=== PATIENT | female | born 1940 | race African-American/Black ===

== ENCOUNTER 2018-07-08 13:52 | Outpatient (CLI) | payer MEDICARE ==
--- NOTE | 2018-07-08 15:10 | BD ---
BONE DENSITOMETRY USING DEXA: Date: 07/08/18 HISTORY: Postmenopausal screening for osteoporosis. Asymptomatic menopausal state. FINDINGS: Lumbar Spine: BMD (g/cm2) L1 1.124 T-Score: 1.2 Z-Score: 3.6 L2 1.261 T-Score: 2.1 Z-Score: 4.7 L3 1.444 T-Score: 3.3 Z-Score: 6.0 L4 1.439 T-Score: 3.4 Z-Score: 6.3 L1-L4 1.340 T-Score: 2.7 Z-Score: 5.3 Femoral Neck: 0.831 T-Score: -0.2 Z-Score: 2.1 Total Femur: 1.091 T-Score: 1.2 Z-Score: 3.3 IMPRESSION: Normal bone mineral density. No evidence of osteopenia/osteoporosis. POS: TPC
== END 2018-07-08 13:53 | disposition home or self-care (01) ==
LOC: BICMAMMO 13:52
PROVIDERS: ATTEND Student in an Organized Health Care Education/Training Program
DX: Z78.0 Asymptomatic menopausal state (principal)
CPT/HCPCS: 77080

== ENCOUNTER 2018-08-10 08:45 | Inpatient (IN) | payer MEDICARE ==
[2018-09-21] MEDS ORDERED: ceFAZolin Sodium (SDC) 2 GM/100 ML BAG ONE (06:01)
[2018-09-21] MEDS ORDERED: Tranexamic Acid 1,000 MG/10 ML VIAL ONE ×2 (06:02→09:30)
[2018-09-21] MEDS ORDERED: Sodium Chloride 0.9% 100 ML ONE (06:02)
[2018-09-21] MEDS ORDERED: Vancomycin HCl 1.5 GM in Sodium Chloride 0.9% 250 ML 300 ML IVPB SCH ×2 (06:15→18:30)
[2018-09-21] MEDS ORDERED: Midazolam HCl 2 mg/2 ml Vial ONE (06:30)
[2018-09-21] MEDS ORDERED: Fentanyl 100 MCG/2 ML VIAL ONE (06:30)
[2018-09-21] MEDS ORDERED: Promethazine HCl 25 MG/ML VIAL IM PRN ×3 (07:15→10:46)
[2018-09-21] MEDS ORDERED: Ropivacaine HCl/PF 250 ML in Premix Bag 1 BAG NERVE BLCK SCH (07:15)
[2018-09-21] MEDS ORDERED: Zolpidem Tartrate 5 MG TAB PO PRN ×2 (07:15→10:46)
[2018-09-21] MEDS ORDERED: Ondansetron PF 4 MG/2 ML Vial IVP PRN ×2 (07:15→10:46)
[2018-09-21] MEDS ORDERED: traMADol HCl 50 MG TAB PO PRN ×3 (07:15→10:46)
[2018-09-21] MEDS ORDERED: Fentanyl 100 MCG/2 ML VIAL IV PRN (07:17)
[2018-09-21] MEDS ORDERED: Bupivacaine/Epinephrine 0.25% 30 ML VIAL ONE (07:51)
[2018-09-21] MEDS ORDERED: Promethazine HCl 25 MG/ML VIAL SLOW IVP PRN (08:11)
[2018-09-21] MEDS ORDERED: Ondansetron HCl/PF 4 MG/2 ML Vial IVP PRN (08:11)
--- NOTE | 2018-09-21 08:39 | HP ---
HISTORY OF PRESENT ILLNESS: Ms. Linder is a pleasant 78-year-old female who presents with left knee pain. Pain began in 2011, has progressed 8/10 severe pain. She has taken ibuprofen, previous steroid injections as well as Synvisc series and has failed conservative measures and desired to proceed with a total knee arthroplasty. PAST MEDICAL HISTORY: Hypertension, hypercholesterolemia, arthritis. PAST SURGICAL HISTORY: Hysterectomy, tibia fracture. MEDICATIONS: 1. Gabapentin. 2. Lisinopril. 3. Simvastatin. 4. Aspirin. ALLERGIES: NO KNOWN DRUG ALLERGIES. SOCIAL HISTORY: Nonsmoker, nondrinker. No drug use. The patient is . PHYSICAL EXAMINATION: GENERAL: Alert and oriented female, in no acute distress, resting comfortably in bed. EXTREMITIES: NVID, ligaments intact. She has subtle varus. The patient has 2+ DP and PT pulses. DIAGNOSTIC DATA: The patient's radiographs show varus angulation of her knee, medial joint space narrowing, osteophyte formation consistent with left knee osteoarthritis. MEDICAL PROBLEMS: Include high blood pressure, high cholesterol, arthritis, and chronic pain. ASSESSMENT AND PLAN: The patient will be admitted for a left total knee arthroplasty. I discussed with the patient risks and benefits of the surgery, pain, scar, bleeding, infection, damage to vital structure, need for further surgeries , fracture below the stem, loss of life and limb. The patient did take a baby aspirin this week, so using a tourniquet as well as TXA, I do not think that she will lose enough blood to require transfusion, but I discussed with her she has increased risk of blood loss requiring transfusion. The patient is given vancomycin and Ancef. We will repeat UA during the OR. She has no symptoms of urinary tract infection. The patient's medical problems will be managed by Lilibeth while in-house. Job ID: [id number] MTDD
[2018-09-21] MEDS ORDERED: Tranexamic Acid 1,000 MG in Sodium Chloride 0.9% 100 ML IVPB SCH (09:30)
[2018-09-21] MEDS ORDERED: Promethazine HCl 25 MG/ML VIAL ONE (09:57)
--- NOTE | 2018-09-21 09:58 | RAD ---
XR Knee Lt 2 View History: Postoperative total knee Comparison: The radiograph August 02, 2018 Findings: Satisfactory appearance left total knee arthroplasty and patellar resurfacing. Impression: Satisfactory postoperative appearance.
[2018-09-21] MEDS ORDERED: Acetaminophen 325 MG TAB PO PRN (10:46)
[2018-09-21] MEDS ORDERED: diphenhydrAMINE 25 MG CAP PO PRN (10:46)
[2018-09-21] MEDS ORDERED: Fentanyl 100 MCG/2 ML VIAL SLOW IVP PRN ×2 (10:46)
[2018-09-21] MEDS ORDERED: HYDROcodone/Acetaminophen 10/325 mg Tablet PO PRN ×2 (10:46)
[2018-09-21] MEDS ORDERED: Gabapentin 300 MG CAP PO PRN ×2 (11:32→15:02)
[2018-09-21 12:01] VITALS: BMI 40.3
--- NOTE | 2018-09-21 12:28 | PDOC.FPRHP ---
- History of Present Illness Chief Complaint: Medical Management Consult History of Present Illness: 78 year old F that had L total knee arthroplasty today. We have been consulted for medical management. Patient has recently returned to floor from post-op and is sleepy. is at bedside. Patient reports feeling cold. Denies any pain. - Allergies/Adverse Reactions Allergies Allergy/AdvReac Type Severity Reaction Status Date / Time shellfish derived Allergy itching Verified 09/09/18 09:08 - Home Medications Medication Instructions Recorded Confirmed Type Amlodipine [Norvasc] 10 mg PO HS 11/13/12 09/09/18 History Aspirin [Aspirin EC] 81 mg PO DAILY 11/14/12 09/09/18 History Ubidecarenone [Co Q-10] 200 mg PO DAILY 09/13/15 09/09/18 History Gabapentin 1 tab PO TID PRN 09/09/18 09/09/18 History Latanoprost [Xalatan 0.005% Ophth 1 drop TOP HS 09/09/18 09/09/18 History Soln] Lisinopril 5 mg PO QAM 09/09/18 09/09/18 History traMADol HCl [Tramadol HCl] 1 - 2 tab PO ASDIR PRN 09/09/18 09/09/18 History - History PMHx: HTN, HLD, OA, neuropathy, DM diet controlled PSHx: Hysterectomy 1979, L tib/fib repair 1995 FHx: CVA, HTN-father, adult leukemia Social: lives with - Review of Systems General: reports: fever/chills (reports chills), fatigue ENT: denies: nasal congestion Respiratory: denies: cough, shortness of breath Cardiovascular: denies: chest pain, palpitation Gastrointestinal: denies: nausea, vomiting, abdominal pain Genitourinary: denies: dysuria Skin: denies: rashes, itching Musculoskeletal: denies: pain, tenderness Neurological: denies: numbness, weakness - Vital signs BP: 128/84 HR: 75 RR: 16 Tmax: 97.5 Pox: 96% on RA Wt: 106 kg - Physical Exam Constitutional: NAD (tired, resting in bed) HEENT: normocephalic and atraumatic, grossly normal vision, grossly normal hearing, MMM Heart: RRR, normal S1/S2, no murmurs/rubs/gallops Lungs: CTAB, no respiratory distress Abdomen: soft, non-tender, bowel sounds present -Musculoskeletal: LLE bandage clean, dry intact. SCDs in place Neurological: no focal deficit Skin: good turgor, capillary refill <2 seconds Heme/Lymphatic: no unusual bruising or bleeding Psychiatric: intact recent and remote memory FMR H&P: A/P - Problem List (1) S/P left knee surgery Current Visit: Yes Status: Acute Code(s): Z98.890 - OTHER SPECIFIED POSTPROCEDURAL STATES (2) Arthritis Current Visit: Yes Status: Chronic Code(s): M19.90 - UNSPECIFIED OSTEOARTHRITIS, UNSPECIFIED SITE (3) HLD (hyperlipidemia) Current Visit: Yes Status: Chronic Code(s): E78.5 - HYPERLIPIDEMIA, UNSPECIFIED Qualifiers: Hyperlipidemia type: unspecified Qualified Code(s): E78.5 - Hyperlipidemia , unspecified (4) HTN (hypertension) Current Visit: Yes Status: Chronic Code(s): I10 - ESSENTIAL (PRIMARY) HYPERTENSION Qualifiers: Hypertension type: essential hypertension Qualified Code(s): I10 - Essential (primary) hypertension - Plan 78 yo F admitted for L total knee arthroplasty performed today. L total knee arthroplasty - surgery team managing pain HTN - BP stable - Continue home lisinopril and amlodipine Neuropathy - Continue home gabapentin HLD - on Coq10 at home, will continue at discharge DM diet controlled CKD2 Addendum - Attending - Attending Attestation Date/Time: 09/21/18 [id number] I personally evaluated the patient and discussed the management with Dr. Faulkner I agree with the History, Examination, Assessment and Plan documented above with any addition or exceptions noted below - 78 year old F with h/o HTN, HLD who underwent L total knee arthroplasty today. We have been consulted for medical management. Denies any pain, N.V currently. Does report feeling of tongue numbness which was evaluated in PACU and felt to may be related to anesthesia. PMH/PSH/Meds/ALl reviewed and agree with resident's documentation. Afebrile P75, BP 128/74, 96% RA Exam repeated by me and agree with resident's findings. A/P: 1) POD#0 s/p L TKR- continue care as per ortho, 2) HTN- well controlled; continue home meds.
[2018-09-21] MEDS: Ketorolac Tromethamine 30 MG/ML VIAL IVP SCH ×3 (12:32→23:07)
[2018-09-21 14:15] LABS: Bilirubin Negative (Negative); Blood, Urine 2+ (Negative); Clarity Clear (Clear); Glucose, Urine (Dipstick) Normal (Negative); Leukocyte Negative Leu/uL (Negative); Nitrite Negative (Negative); Protein, Urine (Dipstick) 10 mg/dL (Neg-Trace); RBC/HPF Greater than 50 HPF (0-3); Squamous Epithelial 0-3 HPF (0-3); Urobilinogen Normal mg/dL (Less than 2)
[2018-09-21 14:32] LABS: Calcium Oxalate Crystals 1+ HPF (None Seen)
[2018-09-21] MEDS ORDERED: Ropivacaine 0.2% HCl/PF (40 MG/20 ML VIAL) ONE (15:15)
[2018-09-21] MEDS ORDERED: Ropivacaine 0.5% HCl/PF (150 MG/30 ML VIAL) ONE (15:15)
[2018-09-21 15:38] LABS: Bacteria/HPF None Seen HPF (None Seen)
--- NOTE | 2018-09-21 15:44 | OP ---
DATE OF PROCEDURE: 09/21/2018 PREOPERATIVE DIAGNOSIS: Left knee osteoarthritis. POSTOPERATIVE DIAGNOSIS: Left knee osteoarthritis. PROCEDURE PERFORMED: Left total knee arthroplasty. SHEEP BONER: Shree Barry PA-C. ANESTHESIA: Steve Nichole CRNA. The patient received a LMA with an adductor canal single shot sciatic. ESTIMATED BLOOD LOSS: 100 mL. TOURNIQUET TIME: 77 minutes at 300 mmHg. ANTIBIOTICS: Ancef 2 g, vancomycin 1.5 g. The patient had TXA 1 g. The patient has had a [place] Triathlon size 3 femur, size 3 tibia, 11 CS poly and A29 patella. COMPLICATIONS: None. HISTORY OF PRESENT ILLNESS: Ms. Linder is an 78-year-old female who presented with knee pain that had failed conservative measures. I discussed with the patient risks and benefits of left total knee arthroplasty to include pain, scar, bleeding, infection, damage to vital structures, decreased range of motion, strength, nonunion, malunion, fracture above the stem, need for further surgeries, loss of life or limb and blood clots. The patient understood the risks and benefits and elected to proceed. DESCRIPTION OF PROCEDURE: Time-out was performed designating the patient's left lower extremity as the operative site based on site, consents, and marking. After time-out, the patient's left lower extremity was prepped and draped in sterile fashion. Tourniquet was brought up for a total of 77 minutes. Anterior midline incision, medial patellar arthrotomy excised the fat pad. Medial soft tissue release, everted the patella, mapped out the distal femur, cut in 4 degrees slope, 0 degrees varus valgus. 11 and 7, she had a hypoplastic lateral femoral condyle, though in physiologic varus. We placed the patient in 3 degrees external rotation guide, mapped out the size 3 cut, placed our box cut, anterior and posterior chamfer cuts, removed osteophytes and bone. Placed our pickle fork in position, released our ACL and released our PCL, cut the tibial tubercle, mapped out the tibia, cut and 1 and 7 with 4 degrees of posterior slope, removed the bone osteophytes. We placed a laminar house carpenter, decompressed the PCL, not much osteophytes posteriorly. We then removed the remnant of the bone. We came back, placed our tibia, felt that I did not like the positions, so we floated the tibia, placed 11 poly in the femur and placed it in flexion and extension. We had overall good alignment in full extension and good flexion and extension gap as well as no significant posterior translation. We then pinned the tibia. We placed it about in full extension, everted the patella, cut it from 25 down to about 12, placed A29 patella, it tracked well. We then removed the clamp and we drilled lugs for our femur, cut our keel for tibia. We cemented our tibia, placed our poly, cemented our femur, removed excess cement, cemented our patella, closed our arthrotomy, injected lidocaine. There was some that seeped out through the hole and a little small rent in the patellar tendon, closed with 2, 0 StrataFix, 2-0 StrataFix and glue. The patient will be admitted per [place] protocol. We will follow up inhouse. Job ID: [id number] LAZ
[2018-09-21] MEDS: CEFAZOLIN 2 GM, Admixture Fee 1 EACH in Sodium Chloride 0.9% 100 ML IVPB SCH ×2 (15:57→23:09)
[2018-09-21] MEDS ORDERED: Lidocaine 1% PF 5 ML VIAL ONE (16:06)
[2018-09-21] MEDS ORDERED: Ondansetron PF 4 MG/2 ML Vial ONE (16:06)
[2018-09-21] MEDS ORDERED: ePHEDrine 50 MG/ML VIAL ONE (16:06)
[2018-09-21] MEDS ORDERED: PROPOFOL 200 MG/20 ML VIAL ONE (16:06)
[2018-09-21] MEDS: Sodium Chloride 0.9% 1,000 ML IV SCH ×2 (18:41→23:05)
[2018-09-21] MEDS ORDERED: Gabapentin 300 MG CAP PO SCH (19:45)
[2018-09-21] MEDS: Aspirin 81 mg Enteric Coated Tablet PO SCH (19:54)
[2018-09-21] MEDS: Amlodipine 10 MG TAB PO SCH (19:54)
[2018-09-21] MEDS: Latanoprost 0.005% Ophth Soln 2.5 ml Bottle EA EYE SCH (20:00)
[2018-09-21] MEDS ORDERED: Latanoprost 0.005% Ophth Soln 2.5 ml Bottle EA EYE SCH (21:00)
[2018-09-21] MEDS ORDERED: Amlodipine 10 MG TAB PO SCH (21:00)
[2018-09-22] MEDS: HYDROcodone/Acetaminophen 10/325 mg Tablet PO PRN ×5 (04:07→22:05)
[2018-09-22 05:27] LABS: Mean Corpuscular Hemoglobin 29.7 pg (27.0-31.0); Mean Corpuscular Volume 93.1 fL (78.0-98.0); Mean Platelet Volume 11.4 fL (7.4-10.4); Platelet Count 147 thou/uL (130-400); RBC Distribution Width 13.6 % (11.5-14.5); White Blood Cell (WBC) Count 7.4 thou/uL (4.8-10.8)
[2018-09-22] MEDS: Ketorolac Tromethamine 30 MG/ML VIAL IVP SCH ×4 (05:28→23:10)
--- NOTE | 2018-09-22 06:25 | PDOC.FM ---
- Subjective Subjective: Patient sitting up in chair. Reports she feels some pain might be coming on. Tolerating PO well. Passing gas. Takes gabapentin only at night so dosing was adjusted - Objective Vital Signs & Weight: Vital Signs (12 hours) Temp Pulse Resp BP BP Pulse Ox 09/22/18 03:36 98.6 F 93 16 114/68 92 L 09/22/18 00:00 101.0 F H 95 16 121/68 93 L 09/21/18 20:00 98.4 F 90 16 125/53 L 94 L 09/21/18 19:54 75 125/53 L Weight Weight 106.594 kg I&O: 09/20/18 09/21/18 09/22/18 06:59 06:59 06:59 Intake Total 2610 Output Total 995 Balance 1615 Result Diagrams: 09/22/18 04:45 Phys Exam - Physical Examination Constitutional: NAD Respiratory: clear to auscultation bilateral Cardiovascular: RRR, no significant murmur Gastrointestinal: soft, non-tender, positive bowel sounds Musculoskeletal: no edema L leg bandaged Neurological: non-focal Psychiatric: normal affect Skin: normal turgor, cap refill <2 seconds Dx/Plan (1) S/P left knee surgery Code(s): Z98.890 - OTHER SPECIFIED POSTPROCEDURAL STATES Status: Acute (2) Arthritis Code(s): M19.90 - UNSPECIFIED OSTEOARTHRITIS, UNSPECIFIED SITE Status: Chronic (3) HLD (hyperlipidemia) Code(s): E78.5 - HYPERLIPIDEMIA, UNSPECIFIED Status: Chronic Qualifiers: Hyperlipidemia type: unspecified Qualified Code(s): E78.5 - Hyperlipidemia , unspecified (4) HTN (hypertension) Code(s): I10 - ESSENTIAL (PRIMARY) HYPERTENSION Status: Chronic Qualifiers: Hypertension type: essential hypertension Qualified Code(s): I10 - Essential (primary) hypertension - Plan Plan: 78 yo F admitted for L total knee arthroplasty performed 09/21. POD #1 s/p L total knee arthroplasty - surgery team managing pain HTN - slightly hypotensive, hold am lisinopril - On home lisinopril and amlodipine Neuropathy - Continue home gabapentin HLD - on Coq10 at home DM diet controlled CKD2 Dispo: Will continue to monitor BP otherwise no further recommendations Addendum - Attending - Attending Attestation Date/Time: 09/22/18 [id number] I personally evaluated the patient and discussed the management with Dr. Faulkner. I agree with the History, Examination, Assessment and Plan documented above with any addition or exceptions noted below. Patient doing well s/p TKR with Ortho. We are holding her BP meds currently and if continues to run low may decrease some dosages. Otherwise, continue home meds. Dispo per primary team.
[2018-09-22] MEDS: Sodium Chloride 0.9% 1,000 ML IV SCH ×2 (07:08→17:03)
[2018-09-22] MEDS: Senokot S 8.6-50 MG TAB PO SCH ×2 (08:26→19:43)
[2018-09-22] MEDS: Multivitamin W/ Minerals 1 TAB PO SCH (08:26)
[2018-09-22] MEDS: Ubidecarenone 50 MG CAP PO SCH (08:27)
[2018-09-22] MEDS: Ferrous Gluconate 324 MG TAB PO SCH ×2 (08:27→19:43)
[2018-09-22] MEDS: Aspirin 81 mg Enteric Coated Tablet PO SCH ×2 (08:27→19:43)
[2018-09-22] MEDS: Lisinopril 5 MG TAB PO SCH (08:33)
[2018-09-22] MEDS ORDERED: Lisinopril 5 MG TAB PO SCH (09:00)
[2018-09-22] MEDS: Amlodipine 10 MG TAB PO SCH (19:43)
[2018-09-22] MEDS: Latanoprost 0.005% Ophth Soln 2.5 ml Bottle EA EYE SCH (19:48)
[2018-09-22] MEDS ORDERED: Gabapentin 300 MG CAP PO SCH (21:00)
[2018-09-23] MEDS: Sodium Chloride 0.9% 1,000 ML IV SCH (03:56)
[2018-09-23] MEDS: Ketorolac Tromethamine 30 MG/ML VIAL IVP SCH (05:11)
[2018-09-23] MEDS: HYDROcodone/Acetaminophen 10/325 mg Tablet PO PRN ×2 (05:24→09:58)
[2018-09-23 06:03] LABS: Hemoglobin 11.6 g/dL (12.0-16.0); Mean Corpuscular HGB CONC 31.4 g/dL (32.0-36.0); Mean Corpuscular Hemoglobin 29.2 pg (27.0-31.0); Mean Corpuscular Volume 92.9 fL (78.0-98.0); Mean Platelet Volume 10.8 fL (7.4-10.4); Platelet Count 144 thou/uL (130-400); RBC Distribution Width 13.7 % (11.5-14.5); Red Blood Cell (RBC) Count 3.99 mill/uL (4.20-5.40)
--- NOTE | 2018-09-23 06:12 | PDOC.FM ---
- Subjective Subjective: Patient reports feeling well this morning. She did have increased pain yesterday when sitting up in hard chair during therapy. She is tolerating PO intake well. She says she may be going home this afternoon. - Objective MAR Reviewed: Yes Vital Signs & Weight: Vital Signs (12 hours) Temp Pulse Resp BP BP Pulse Ox 09/23/18 04:26 98.5 F 70 16 118/68 92 L 09/23/18 00:27 97.8 F 63 18 107/66 92 L 09/22/18 20:00 98.5 F 67 16 131/74 95 09/22/18 19:43 75 119/73 Weight Admit Weight 106.594 kg Weight 106.594 kg I&O: 09/21/18 09/22/18 09/23/18 06:59 06:59 06:59 Intake Total 2610 1999 Output Total 995 Balance 1615 1999 Result Diagrams: 09/23/18 05:39 Phys Exam - Physical Examination Constitutional: NAD HEENT: moist MMs Respiratory: no wheezing, clear to auscultation bilateral Cardiovascular: RRR, no significant murmur Gastrointestinal: soft, non-tender, positive bowel sounds Musculoskeletal: no edema Left leg brace in place Neurological: non-focal Psychiatric: normal affect Skin: normal turgor Dx/Plan (1) S/P left knee surgery Code(s): Z98.890 - OTHER SPECIFIED POSTPROCEDURAL STATES Status: Acute (2) Arthritis Code(s): M19.90 - UNSPECIFIED OSTEOARTHRITIS, UNSPECIFIED SITE Status: Chronic (3) HLD (hyperlipidemia) Code(s): E78.5 - HYPERLIPIDEMIA, UNSPECIFIED Status: Chronic Qualifiers: Hyperlipidemia type: unspecified Qualified Code(s): E78.5 - Hyperlipidemia , unspecified (4) HTN (hypertension) Code(s): I10 - ESSENTIAL (PRIMARY) HYPERTENSION Status: Chronic Qualifiers: Hypertension type: essential hypertension Qualified Code(s): I10 - Essential (primary) hypertension - Plan Plan: 78 yo F admitted for L total knee arthroplasty performed 09/21. POD #2 s/p L total knee arthroplasty - surgery team managing pain - PT consulted HTN - On home lisinopril and amlodipine - will adjust BP meds as necessary to avoid hypotension, BP improved yesterday. Acute blood loss anemia - Hgb stable, pt asymptomatic Neuropathy - Continue home gabapentin HLD - on Coq10 at home DM diet controlled CKD2 Dispo: Will continue to monitor BP. Discharge plans per surgery team. Addendum - Attending - Attending Attestation Date/Time: 09/23/18 [id number] I personally evaluated the patient and discussed the management with Dr. Faulkner. I agree with the History, Examination, Assessment and Plan documented above with any addition or exceptions noted below. Patient doing well. BP stable. Dispo per primary team.
[2018-09-23] MEDS ORDERED: Amlodipine 10 MG TAB PO SCH (06:14)
[2018-09-23 07:32] VITALS: BP 139/76; TEMP 98.1
[2018-09-23] MEDS: Ubidecarenone 50 MG CAP PO SCH (09:48)
[2018-09-23] MEDS: Multivitamin W/ Minerals 1 TAB PO SCH (09:49)
[2018-09-23] MEDS: Aspirin 81 mg Enteric Coated Tablet PO SCH (09:49)
[2018-09-23] MEDS: Lisinopril 5 MG TAB PO SCH (09:49)
[2018-09-23] MEDS: Ferrous Gluconate 324 MG TAB PO SCH (09:49)
[2018-09-23] MEDS: Senokot S 8.6-50 MG TAB PO SCH (09:49)
[2018-09-23] MEDS ORDERED: Amlodipine 5 MG TAB PO SCH (21:00)
== END 2018-09-23 12:05 | disposition home or self-care (01) | DRG 470 ==
LOC: SJJU 09-21 05:45 → SURG A 09-21 11:00
PROVIDERS: ADMIT Orthopaedic Surgery; ATTEND Orthopaedic Surgery
PROC: 0SRD0J9 Replacement of Left Knee Joint with Synthetic Substitute, Cemented, Open Approach (ICD-10-PCS; principal; 2018-09-21)
DX: M17.12 Unilateral primary osteoarthritis, left knee (principal); D62 Acute posthemorrhagic anemia; E78.00 Pure hypercholesterolemia, unspecified; M19.90 Unspecified osteoarthritis, unspecified site; E11.40 Type 2 diabetes mellitus with diabetic neuropathy, unspecified; E78.5 Hyperlipidemia, unspecified; E11.22 Type 2 diabetes mellitus with diabetic chronic kidney disease; N18.2 Chronic kidney disease, stage 2 (mild); I12.9 Hypertensive chronic kidney disease with stage 1 through stage 4 chronic kidney disease, or unspecified chronic kidney disease; Z90.710 Acquired absence of both cervix and uterus; Z79.899 Other long term (current) drug therapy; Z79.82 Long term (current) use of aspirin
CPT/HCPCS: 36415; 81001; 85027; 87086; C1713; C1776; J0690; J1885; J2001; J2250; J2405; J2550; J2704; J2795; J3010; J3370; J3490; J7050

== ENCOUNTER 2018-08-31 07:24 | Outpatient (CLI) | payer MEDICARE ==
--- NOTE | 2018-08-31 11:04 | NM ---
NUCLEAR MEDICINE CARDIAC MYOCARDIAL PERFUSION SPECT EJECTION FRACTION STUDY WALL MOTION CINE: DATE: 08/31/2018 HISTORY: 77-year-old hypertensive diabetic female presents with acute chest pain. TECHNIQUE: Number of days: 1 Rest study: Not performed. Pharmacologic stress: Adenosine dose: 62.1 mg Stress study: Technetium 99m-sestamibi (Cardiolite) dose: 31.7 mCi FINDINGS: CARDIAC (MYOCARDIAL PERFUSION) SPECT Distribution of sestamibi is homogeneous throughout the left ventricle, with no myocardial perfusion defects. EJECTION FRACTION STUDY Left ventricular EF = 73 % WALL MOTION CINE The left ventricular wall motion is normal. There is normal systolic wall thickening. IMPRESSION: Normal.
== END 2018-08-31 07:25 | disposition home or self-care (01) ==
LOC: NM 07:24
PROVIDERS: ATTEND Family Medicine
DX: R94.31 Abnormal electrocardiogram [ECG] [EKG] (principal)
CPT/HCPCS: 78452; 93017; A9500; J0153

== ENCOUNTER 2018-09-09 08:12 | Outpatient (CLI) | payer MEDICARE ==
[2018-09-09 10:06] LABS: Prothrombin Time 13.1 SEC (12.0-14.7)
[2018-09-09 10:18] LABS: Bacteria/HPF 2+ HPF (None Seen); Bilirubin Negative (Negative); Blood, Urine Negative (Negative); Calcium Oxalate Crystals Rare HPF (None Seen); Clarity Clear (Clear); Glucose, Urine (Dipstick) Normal (Negative); Leukocyte Negative Leu/uL (Negative); Nitrite Negative (Negative); Protein, Urine (Dipstick) 10 mg/dL (Neg-Trace); RBC/HPF 0-3 HPF (0-3); Urobilinogen 3 mg/dL (Less than 2)
[2018-09-09 10:21] LABS: Anion Gap 12 mmol/L (10-20); BUN (Urea Nitrogen) 9 mg/dL (9.8-20.1); Calc. Creatinine Clearance 0 mL/min (70-130); Calcium 9.5 mg/dL (7.8-10.44); Carbon Dioxide 24 mmol/L (23-31); Chloride 108 mmol/L (98-107); Estimated GFR-MDRD 65; Glucose 130 mg/dL (83-110); Sodium 140 mmol/L (136-145)
[2018-09-09 12:30] LABS: Eosinophils 1 % (0-10); Hemoglobin 13.8 g/dL (12.0-16.0); Lymphocytes 68 % (21-51); MDiff Complete? YES; Mean Corpuscular HGB CONC 30.8 g/dL (32.0-36.0); Mean Corpuscular Hemoglobin 28.6 pg (27.0-31.0); Mean Corpuscular Volume 92.9 fL (78.0-98.0); Mean Platelet Volume 11.4 fL (7.4-10.4); Monocytes 8 % (0-10); Neutrophil 23 % (42-75); Platelet Count 178 thou/uL (130-400); RBC Distribution Width 13.6 % (11.5-14.5); RBC Morphology Normal; Red Blood Cell (RBC) Count 4.84 mill/uL (4.20-5.40)
--- NOTE | 2018-09-09 16:56 | EKG ---
Test Reason : Blood Pressure : / mmHG Vent. Rate : 058 BPM Atrial Rate : 058 BPM P-R Int : 142 ms QRS Dur : 092 ms QT Int : 430 ms P-R-T Axes : -03 -41 -23 degrees QTc Int : 422 ms Sinus bradycardia with sinus arrhythmia Left axis deviation Moderate voltage criteria for LVH, may be normal variant T wave abnormality, consider anterior ischemia , inferior ischemia Abnormal ECG When compared with ECG of 05-JUN-2016 08:40, T wave inversion more evident in Inferior leads Inverted T waves have replaced nonspecific T wave abnormality in Anterior leads Confirmed by DR. Prema MILES ([id number]) on 09/09/2018 4:56:35 PM Referred By: DELGADO Confirmed By:DR. Prema MILES
== END 2018-09-09 08:13 | disposition home or self-care (01) ==
LOC: LABBT 08:12
PROVIDERS: ATTEND Orthopaedic Surgery
DX: Z01.818 Encounter for other preprocedural examination (principal); M17.12 Unilateral primary osteoarthritis, left knee
CPT/HCPCS: 80048; 81001; 85025; 85610; 87081; 93005; 93010

== ENCOUNTER 2019-04-26 15:03 | Outpatient (CLI) | payer MEDICARE ==
--- NOTE | 2019-04-26 15:31 | RAD ---
HIPS BILATERAL TWO VIEW: 04/26/19 HISTORY: Pain. COMPARISON: None. FINDINGS: There is mild narrowing of the hips bilaterally. Enthesopathic changes of both greater trochanters. Phleboliths in the pelvis. No acute displaced fracture. IMPRESSION: Mild degenerative changes of both hips. POS: CET
== END 2019-04-26 15:04 | disposition home or self-care (01) ==
LOC: RAD-FRANK 15:03
PROVIDERS: ATTEND Nurse Practitioner Family
DX: M25.552 Pain in left hip (principal); M25.551 Pain in right hip; I73.9 Peripheral vascular disease, unspecified; M79.10 Myalgia, unspecified site; E66.01 Morbid (severe) obesity due to excess calories; M17.12 Unilateral primary osteoarthritis, left knee; G89.29 Other chronic pain; M16.0 Bilateral primary osteoarthritis of hip
CPT/HCPCS: 36415; 73521; 80053; 82306; 82607; 82746; 83036; 84443; 85025; 87086

== ENCOUNTER 2019-05-01 17:51 | Emergency (ER) | payer MEDICARE ==
--- NOTE | 2019-05-01 18:43 | RAD ---
AP view of the pelvis INDICATION: Bilateral hip pain COMPARISON: None. FINDINGS: Bones: No acute fracture or subluxation is evident. Bone mineralization appears within normal limits. Hips: Mild degenerative change of both hips, right greater than left. SI joints and symphysis pubis: Mild degenerative change of both SI joints. Intrapelvic contents: Numerous phleboliths within the lower pelvis IMPRESSION: No acute osseous abnormality.
== END 2019-05-01 19:20 | disposition home or self-care (01) ==
LOC: ERS 17:51
DX: M16.0 Bilateral primary osteoarthritis of hip (principal); I10 Essential (primary) hypertension; E78.5 Hyperlipidemia, unspecified; Z79.82 Long term (current) use of aspirin; Z79.84 Long term (current) use of oral hypoglycemic drugs; Z79.899 Other long term (current) drug therapy
CPT/HCPCS: 72170

== ENCOUNTER 2019-12-09 12:04 | Emergency (ER) | payer MEDICARE ==
--- NOTE | 2019-12-09 16:53 | RAD ---
ABDOMEN ONE VIEW: 12/09/19 HISTORY: Fecal impaction with abdominal pain. FINDINGS/IMPRESSION: The bowel gas pattern is unremarkable. There is fecal material in the left colon, rectum and rectosig moid. There are degenerative changes in the spine. POS: OFF
== END 2019-12-09 17:45 | disposition home or self-care (01) ==
LOC: ERS 12:04
DX: K59.00 Constipation, unspecified (principal); E78.5 Hyperlipidemia, unspecified; I10 Essential (primary) hypertension; Z79.82 Long term (current) use of aspirin; Z79.899 Other long term (current) drug therapy; Z79.84 Long term (current) use of oral hypoglycemic drugs
CPT/HCPCS: 74018

== ENCOUNTER 2022-02-25 08:11 | Outpatient (CLI) | payer MEDICARE | END 2022-02-25 08:12 | disposition home or self-care (01) | LOC: BICCT 08:11 | PROVIDERS: ATTEND Nurse Anesthetist, Certified Registered | DX: M51.16 Intervertebral disc disorders with radiculopathy, lumbar region (principal); M48.061 Spinal stenosis, lumbar region without neurogenic claudication; M47.818 Spondylosis without myelopathy or radiculopathy, sacral and sacrococcygeal region; N20.0 Calculus of kidney; M48.07 Spinal stenosis, lumbosacral region | CPT/HCPCS: 72131 ==

== ENCOUNTER 2023-06-10 16:38 | Inpatient (IN) | payer MEDICARE ==
[2023-06-10 17:11] LABS: #Basophils Less than 0.03 10x3/uL (0.0-0.2); #Eosinphils Less than 0.03 10x3/uL (0.0-0.7); %Basophils 0.2 % (0.0-1.0); %Eosinophils 0.4 % (0.0-10.0); %Lymphocytes 37.8 % (21.0-51.0); %Neutrophils 42.4 % (42.0-75.0); Hematocrit 37.6 % (36.0-47.0); Hemoglobin 11.9 g/dL (12.0-16.0); Mean Corpuscular HGB CONC 31.6 g/dL (32.0-36.0); Mean Corpuscular Hemoglobin 29.9 pg (27.0-31.0); Mean Corpuscular Volume 94.5 fL (78.0-98.0); Platelet Count 129 10x3/uL (130-400); RBC Distribution Width 16.4 % (11.5-14.5); Red Blood Cell (RBC) Count 3.98 mill/uL (4.20-5.40)
[2023-06-10 17:35] LABS: Troponin I Less than 0.010 ng/mL (< 0.028)
[2023-06-10 17:44] LABS: Anion Gap 20 mmol/L (10-20); Globulin 4.1 g/dL (2.4-3.5)
[2023-06-10 17:48] LABS: ALT (SGPT) 21 U/L (8-55); AST (SGOT) 24 U/L (5-34); Albumin 3.8 g/dL (3.4-4.8); Alkaline Phosphatase 54 U/L (40-110); BUN (Urea Nitrogen) 11 mg/dL (9.8-20.1); Bilirubin, Total 0.7 mg/dL (0.2-1.2); Calc. Creatinine Clearance 0 mL/min (70-130); Calcium 10.2 mg/dL (7.8-10.44); Carbon Dioxide 20 mmol/L (23-31); Chloride 106 mmol/L (98-107); Estimated GFR 56; Glucose 88 mg/dL (83-110); Potassium 3.7 mmol/L (3.5-5.1); Protein, Total 7.9 g/dL (5.8-8.1); Sodium 142 mmol/L (136-145)
[2023-06-10] MEDS ORDERED: Aspirin Chewable 81 MG TAB ONE (18:59)
[2023-06-10] MEDS ORDERED: Ondansetron PF 4 MG/2 ML Vial IVP PRN (19:45)
[2023-06-10] MEDS ORDERED: Ondansetron ODT 4 MG TAB SL PRN (19:45)
[2023-06-10] MEDS ORDERED: Acetaminophen 325 MG TAB PO PRN (19:45)
[2023-06-10 22:02] LABS: Troponin I Less than 0.010 ng/mL (< 0.028)
[2023-06-11 00:02] LABS: Hemoglobin A1c 7.6 % (4.0-6.0)
[2023-06-11 00:03] LABS: Cardiac Risk 2.6 (Less than 4.5)
[2023-06-11 00:07] LABS: Troponin I Less than 0.010 ng/mL (< 0.028)
[2023-06-11 00:24] LABS: Free T4 (Free Thyroxine) 1.03 ng/dL (0.70-1.48); Thyroid Stimulating Hormone 2.124 uIU/mL (0.35-4.94)
[2023-06-11 02:09] LABS: Troponin I Less than 0.010 ng/mL (< 0.028)
[2023-06-11 05:02] LABS: Hemoglobin 10.7 g/dL (12.0-16.0); Mean Corpuscular HGB CONC 31.5 g/dL (32.0-36.0); Mean Corpuscular Hemoglobin 29.6 pg (27.0-31.0); Mean Corpuscular Volume 93.9 fL (78.0-98.0); Mean Platelet Volume 12.7 fL (7.4-10.4); Platelet Count 108 10x3/uL (130-400); RBC Distribution Width 16.5 % (11.5-14.5); Red Blood Cell (RBC) Count 3.62 mill/uL (4.20-5.40)
[2023-06-11 05:21] LABS: BUN (Urea Nitrogen) 10 mg/dL (9.8-20.1); Calc. Creatinine Clearance 86 mL/min (70-130); Calcium 9.3 mg/dL (7.8-10.44); Carbon Dioxide 19 mmol/L (23-31); Estimated GFR 70; Glucose 108 mg/dL (83-110)
[2023-06-11 05:22] LABS: Hypochromia SLIGHT = 6-15 cells HPF (0-5); Lymphocytes 31 % (21-51); Monocytes 22 % (0-10); Neutrophil 47 % (42-75); Platelet Adequacy Comment Platelets Decreased; Polychromasia SLIGHT = 2-3 cells HPF (0-2)
[2023-06-11 05:52] LABS: Chloride 108 mmol/L (98-107); Potassium 3.9 mmol/L (3.5-5.1); Sodium 140 mmol/L (136-145)
[2023-06-11 05:55] LABS: Anion Gap 19 mmol/L (10-20)
[2023-06-11] MEDS ORDERED: Aspirin Chewable 81 MG TAB PO SCH (09:00)
[2023-06-11] MEDS: Aspirin 81 mg Enteric Coated Tablet PO SCH (10:03)
[2023-06-11] MEDS: Atorvastatin Calcium 40 MG TAB PO SCH (10:04)
[2023-06-11] MEDS: Sertraline 25 MG TAB PO SCH (10:05)
[2023-06-11] MEDS: CO Q-10 CAPSULE 100 MG PO SCH (10:05)
[2023-06-11] MEDS: Enoxaparin 40 MG (0.4 mL) SYRINGE SC SCH (10:06)
[2023-06-11] MEDS: Diclofenac 1% 50 GM TOPICAL GEL TP SCH (10:08)
[2023-06-11] MEDS: Lisinopril 10 MG TAB PO SCH (10:09)
[2023-06-11] MEDS ORDERED: Regadenoson 0.4 MG/5 ML SYRINGE ONE (12:24)
[2023-06-11] MEDS: fentaNYL 50 mcg/mL 1 mL Vial SLOW IVP SCH (14:22)
[2023-06-11] MEDS: Gabapentin 300 MG CAP PO SCH (18:04)
[2023-06-11] MEDS: Latanoprost 0.005% Ophth Soln 2.5 ml Bottle EA EYE SCH (21:16)
[2023-06-11] MEDS ORDERED: Cyclobenzaprine 10 MG TAB PO SCH (22:30)
[2023-06-11] MEDS: hydrOXYzine 10 MG TAB PO SCH (23:05)
[2023-06-11] MEDS: Lidocaine 4% Patch TD SCH (23:05)
[2023-06-11] MEDS: Cyclobenzaprine 10 MG TAB PO SCH (23:38)
[2023-06-12 01:35] LABS: Anion Gap 19 mmol/L (10-20)
[2023-06-12 01:39] LABS: BUN (Urea Nitrogen) 10 mg/dL (9.8-20.1); Calc. Creatinine Clearance 93 mL/min (70-130); Calcium 9.5 mg/dL (7.8-10.44); Carbon Dioxide 16 mmol/L (23-31); Chloride 111 mmol/L (98-107); Estimated GFR 77; Glucose 97 mg/dL (83-110); Magnesium 1.9 mg/dL (1.6-2.6); Phosphorus 3.1 mg/dL (2.3-4.7); Potassium 3.8 mmol/L (3.5-5.1); Sodium 142 mmol/L (136-145)
[2023-06-12] MEDS: HYDROcodone/Acetaminophen 5/325 mg Tablet PO SCH (02:40)
[2023-06-12 04:35] LABS: Hemoglobin 10.3 g/dL (12.0-16.0); Mean Corpuscular HGB CONC 31.2 g/dL (32.0-36.0); Mean Corpuscular Hemoglobin 29.6 pg (27.0-31.0); Mean Corpuscular Volume 94.8 fL (78.0-98.0); Mean Platelet Volume 13.1 fL (7.4-10.4); Platelet Count 122 10x3/uL (130-400); RBC Distribution Width 16.6 % (11.5-14.5); Red Blood Cell (RBC) Count 3.48 mill/uL (4.20-5.40)
[2023-06-12 04:53] LABS: Anion Gap 15 mmol/L (10-20)
[2023-06-12 04:55] LABS: BUN (Urea Nitrogen) 11 mg/dL (9.8-20.1); Calc. Creatinine Clearance 94 mL/min (70-130); Calcium 9.3 mg/dL (7.8-10.44); Carbon Dioxide 19 mmol/L (23-31); Chloride 111 mmol/L (98-107); Estimated GFR 78; Glucose 87 mg/dL (83-110); Potassium 3.8 mmol/L (3.5-5.1); Sodium 141 mmol/L (136-145)
[2023-06-12 06:01] LABS: Band 1 % (5-11); Large Platelets 51.5 % (0-5); Lymphocytes 41 % (21-51); Monocytes 17 % (0-10); Neutrophil 42 % (42-75); Platelet Adequacy Comment Platelets Decreased; Polychromasia SLIGHT = 2-3 cells HPF (0-2); RBC Morphology Within Normal Limits; Smudge Cells 23.8 %
[2023-06-12] MEDS: Gabapentin 300 MG CAP PO PRN (08:46)
[2023-06-12] MEDS: Methocarbamol 500 MG TAB PO SCH (08:47)
[2023-06-12] MEDS: Lidocaine 4% Patch TD SCH (10:05)
[2023-06-12] MEDS ORDERED: Gabapentin 300 MG CAP PO PRN (13:57)
[2023-06-12] MEDS: Ketorolac Tromethamine 30 MG (1 mL) VIAL IVP PRN (20:50)
[2023-06-12] MEDS: Transdermal Patch Removal TOP SCH (22:17)
[2023-06-13 04:42] LABS: Hematocrit 31.7 % (36.0-47.0); Hemoglobin 10.2 g/dL (12.0-16.0); Mean Corpuscular HGB CONC 32.2 g/dL (32.0-36.0); Mean Corpuscular Hemoglobin 29.7 pg (27.0-31.0); Mean Corpuscular Volume 92.2 fL (78.0-98.0); Platelet Count 128 10x3/uL (130-400); RBC Distribution Width 16.7 % (11.5-14.5); Red Blood Cell (RBC) Count 3.44 mill/uL (4.20-5.40)
[2023-06-13 04:53] LABS: Iron 31 ug/dL (50-170); Iron Binding Capacity, Total 228 mcg/dL (265-497)
[2023-06-13 04:57] LABS: Anion Gap 16 mmol/L (10-20); BUN (Urea Nitrogen) 9 mg/dL (9.8-20.1); Calc. Creatinine Clearance 90 mL/min (70-130); Calcium 9.2 mg/dL (7.8-10.44); Carbon Dioxide 19 mmol/L (23-31); Chloride 110 mmol/L (98-107); Estimated GFR 75; Glucose 97 mg/dL (83-110); Iron Binding Capacity, Total 230 mcg/dL (265-497); Potassium 3.8 mmol/L (3.5-5.1); Sodium 141 mmol/L (136-145)
[2023-06-13 05:10] LABS: Band 1 % (5-11); Eosinophils 1 % (0-10); Large Platelets 17.5 % (0-5); Lymphocytes 44 % (21-51); Monocytes 20 % (0-10); Neutrophil 30 % (42-75); Platelet Adequacy Comment Platelets Decreased; RBC Morphology Within Normal Limits; Reactive Lymphocytes 2 % (0-10); Smudge Cells 17.5 %
[2023-06-13 09:18] LABS: INR-International Normal Ratio 1.2; PTT 28.9 sec (22.9-36.1); Prothrombin Time 14.7 sec (12.0-14.7)
[2023-06-13] MEDS: Ferrous Sulfate 325 MG TAB PO SCH (10:12)
[2023-06-13 12:25] VITALS: TEMP 97.5
[2023-06-13 12:33] VITALS: BP 136/67
== END 2023-06-13 14:18 | disposition home health service (06) | DRG 556 ==
LOC: ERS 16:38 → 2SW 19:37 → OBSVTOIN 06-12 13:48
PROVIDERS: ADMIT Family Medicine; ATTEND Family Medicine
DX: M62.838 Other muscle spasm (principal); G45.9 Transient cerebral ischemic attack, unspecified; D61.818 Other pancytopenia; I50.32 Chronic diastolic (congestive) heart failure; R53.81 Other malaise; R07.89 Other chest pain; M54.30 Sciatica, unspecified side; H40.9 Unspecified glaucoma; I11.0 Hypertensive heart disease with heart failure; I20.9 Angina pectoris, unspecified; D50.9 Iron deficiency anemia, unspecified; Z91.013 Allergy to seafood; Z79.82 Long term (current) use of aspirin; Z79.899 Other long term (current) drug therapy; Z98.890 Other specified postprocedural states
CPT/HCPCS: 36415; 36416; 70450; 70551; 71045; 78452; 80048; 80053; 80061; 82728; 83010; 83036; 83540; 83550; 83615; 83690; 83735; 83880; 84100; 84439; 84443; 84484; 85025; 85046; 85610; 85730; 93005; 93010; 93017; 93306; 93880; 96372; 96374; A9502; G0378; J1650; J1885; J2785; J3010